=== PATIENT | male | born 1960 | race African-American/Black ===

== ENCOUNTER 2017-12-02 07:55 | Inpatient (IN) | payer MEDICARE, MEDICAID ==
[2017-12-02 08:26] VITALS: BMI 26.2
[2017-12-02] MEDS ORDERED: Acetaminophen 325 MG TAB PO PRN (10:24)
[2017-12-02] MEDS ORDERED: Ondansetron HCl/PF 4 MG/2 ML Vial IVP PRN (10:24)
[2017-12-02] MEDS ORDERED: Ondansetron ODT 4 MG TAB PO PRN (10:24)
[2017-12-02 10:52] LABS: Hemoglobin 14.6 g/dL (14.0-18.0); Mean Corpuscular HGB CONC 33.3 g/dL (32.0-36.0); Mean Corpuscular Hemoglobin 33.7 pg (27.0-31.0); Mean Platelet Volume 8.2 fL (7.4-10.4); Platelet Count 213 thou/uL (130-400); RBC Distribution Width 11.5 % (11.5-14.5); Red Blood Cell (RBC) Count 4.34 mill/uL (4.70-6.10); White Blood Cell (WBC) Count 5.4 thou/uL (4.8-10.8)
[2017-12-02 11:14] LABS: ALT (SGPT) 52 U/L (8-55); AST (SGOT) 35 U/L (5-34); Albumin 3.9 g/dL (3.5-5.0); Alkaline Phosphatase 50 U/L (40-150); Anion Gap 15 mmol/L (10-20); BUN (Urea Nitrogen) 16 mg/dL (8.4-25.7); Bilirubin, Total 0.6 mg/dL (0.2-1.2); Calc. Creatinine Clearance 93 mL/min (70-130); Calcium 9.4 mg/dL (7.8-10.44); Carbon Dioxide 22 mmol/L (22-29); Chloride 101 mmol/L (98-107); Estimated GFR-MDRD 90; Globulin 4.4 g/dL (2.4-3.5); Glucose 86 mg/dL (70-105); Potassium 3.9 mmol/L (3.5-5.1); Protein, Total 8.3 g/dL (6.0-8.3); Sodium 134 mmol/L (136-145)
[2017-12-02 11:30] LABS: Band 3 % (5-11); Eosinophils 10 % (0-10); Lymphocytes 22 % (21-51); MDiff Complete? YES; Monocytes 12 % (0-10); Neutrophil 45 % (42-75); RBC Morphology Normal; Reactive Lymphocytes 7 % (0-10)
--- NOTE | 2017-12-02 15:51 | HP ---
DATE OF SERVICE: 12/02/2017 LOCATION: [place] [address]. HISTORY OF PRESENT ILLNESS: The patient is a 56-year-old male with past medical history of hypertens ion, psychiatric problems and history of seizures who follows up with me in the clinic and he was a t ransfer of care from Dr. Velásquez. Most of the history is provided by his mother. The patient has s een Dr. Chisholm and Dr. Chavez in the past for seizures. SEIZURE HISTORY: He has had seizures since . When asked in detail about what kind of seizures he had as a kid, mother says regular seizures. She was not able to provide any more details. Then bel brand used to live by himself for a long time, so she does not know what happened during that period. He has been staying with his mother for the last 7-8 years. She said that before with the seizures, he would fall flat. He has a history of grand mal seizures several years ago. His seizures now are di fferent than his previous seizures. She describes it as he starts feeling different, he starts fidge ting with his hands, then he gets up and starts walking, sometimes he falls. There is no loss of con sciousness, very seldom, his hands and legs become straight and starts shaking. Currently, he is on 3 antiepileptic medications. Vimpat 200 mg 1 twice a day, Keppra 750 mg 2.5 tabl ets twice a day and Trileptal 600 mg 1 tablet twice a day. His last clinic visit on 10/09/2017, [facility] had mentioned that he had several seizures similar to what was described above. He continued to h ave frequent seizure-like episodes. He had 6 seizures between June and September last year. The on e he had in July, he wet his pants and the one in September, he had taken Janina and had a seizu re that he was confused for 2-3 days. Mother had recorded a seizure on the phone, which I had review ed. The patient was in the bed with eyes open, hands straight up in air. He was fumbling with the p illows in his hand. He had bicycling movements of his legs. He was not responding to the mother, th en he sat up and started arranging things. He would get up and start walking and sit down and then g et up again and start walking. He did that several times. He did not answer or respond to his mothe r, but he was purposeful during that time. He is compliant with the seizure medications. He is on K eppra, Trileptal, and the Vimpat levels in the past in 05/2017 were therapeutic. According to the previous neurologist note, the triggers were hypertension, heat and stress. 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 His previous EEG did not show any epileptiform activity. The patient is currentl y admitted to the epilepsy monitoring unit to further characterize his current episodes, which are di fferent from his previous seizures and to differentiate between epileptic versus nonepileptic episode s, which would further guidance with the treatment plan. The patient is currently stable. He denies any symptoms. PAST MEDICAL HISTORY: As mentioned in the HPI. PAST SURGICAL HISTORY: None. FAMILY HISTORY: Father due to possible reaction to penicillin. Mother has diabetes, hypert ension and heart disease. SOCIAL HISTORY: Former smoker. No alcohol use, no illicit drug use. ALLERGIES: No known drug allergies. HOME MEDICATIONS: Antiepileptic medications as described in the HPI. The patient also takes 81 mg a spirin, hydrochlorothiazide 25 mg daily and risperidone 0.5 mg at bedtime. REVIEW OF SYSTEMS: As mentioned in the HPI, otherwise negative. PHYSICAL EXAMINATION: VITAL SIGNS: Temperature 97.5, pulse rate 66, respiratory rate 17, O2 sats 96% on room air and blood pressure 138-141/80-96. GENERAL: A well-developed, well-nourished male in no apparent distress. HEENT: Normocephalic and atraumatic. Normal sclerae. NECK: Supple. RESPIRATORY: Clear to auscultation bilaterally. CARDIOVASCULAR: Regular rate and rhythm. NEUROLOGIC: The patient is awake, alert, oriented x3, and able to answer questions appropriately. S peech and language fluent. Cranial nerves: Pupils are reactive to light bilaterally. Visual rodriguez are intact. Extraocular movements intact. Face is symmetric, normal hearing, normal shoulder shrug bilaterally. Motor: Normal tone and bulk with 5/5 strength in bilateral upper and lower extremitie s. Sensory intact to fine touch throughout. Reflexes are 2+ throughout. Plantar response is flexio n bilaterally. Gait and Romberg not tested. Coordination is intact to [id number] testing. IMPRESSION: 1. Spells as described in the history of present illness. 2. History of seizures, grand mal seizures per mother and passing out spells per previous neurologis t. 3. History of hypertension. 4. History of psychiatric problems. PLAN: 1. The patient is admitted to the epilepsy monitoring unit for long-term video EEG monitoring to sonya racterize and classify the new spells that he has been having, which are different than his previous seizure episodes to see whether they are epileptic or nonepileptic in nature, which will further guid e us with appropriate treatment strategy, so this test will help us classify the spells into epilepti c versus nonepileptic spells, which will further guidance us in the treatment plan. The patient cont inues to have these episodes even after being on 3 different antiepileptic medications. 2. We will hold his antiepileptic medications tonight. 3. Continue his other medications including hydrochlorothiazide, aspirin, and risperidone. 4. The patient is on p.r.n. Ativan for prolonged seizure or cluster of seizures. He is also on p.r. n. Tylenol, Zofran. 5. We will check CBC, CMP and Keppra, Trileptal and Vimpat level. 6. Seizure precautions and fall precautions implemented. 7. Cardiac diet. 8. Sequential compression devices for deep venous thrombosis prophylaxis. 9. Neuro checks and vital signs every 4 hours. 10. The patient will be continuously monitored through video and EEG recording to capture his seizur e-like episodes. 11. The patient will not be sleep deprived tonight. We will try to capture his normal sleep and lalo ke pattern on the EEG. 12. The entire plan was discussed with the patient and the mother. We will continue to monitor the patient and the plan was also discussed with the nurse taking care of the patient.
[2017-12-02] MEDS: risperiDONE 1 MG TAB PO SCH (20:53)
[2017-12-03] MEDS: Aspirin 81 mg Enteric Coated Tablet PO SCH (08:35)
[2017-12-03] MEDS: Hydrochlorothiazide 25 MG TAB PO SCH (08:35)
[2017-12-03] MEDS: Lorazepam 2 MG/ML VIAL SLOW IVP PRN (15:30)
[2017-12-03] MEDS ORDERED: hydrALAZINE 20 MG/ML VIAL SLOW IVP PRN (15:53)
[2017-12-03] MEDS: Lacosamide 50 mg Tablet PO SCH (16:59)
[2017-12-03] MEDS ORDERED: Lacosamide 200 MG in Sodium Chloride 0.9% 50 ML IVPB SCH (17:00)
[2017-12-03] MEDS ORDERED: Lorazepam 2 MG/ML VIAL SLOW IVP SCH (17:15)
[2017-12-03] MEDS ORDERED: levETIRAcetam 500 MG TAB PO SCH (21:30)
[2017-12-03] MEDS: risperiDONE 1 MG TAB PO SCH (22:13)
--- NOTE | 2017-12-03 22:23 | PRG ---
DATE OF SERVICE: 12/03/2017 LOCATION: [place] [address]. SUBJECTIVE HISTORY: Up until this evening, patient has had 4 seizure episodes. The first seizure episode was yesterday. On 12/02/2017 at night, the patient pushed the event button and then he was stiff/still for few seconds. He was fumbling with his hand. He was fidgety, restless, he stood up and started walking around. He had urinary incontinence. He was confused. He was not agitated. There was no tonic clonic movement with this episode. It lasted for 14 minutes. Patient had 3 more episodes today on 12/03/2017. They were mostly tonic clonic in nature. Patient received 2 mg Ativan after the second seizure. The other two were not as intense and not long lasting like the second seizure. He was little bit agitated, so he was given additional 1 mg Ativan. Patient otherwise remains stable in between the episodes. His blood pressure remains slightly on the higher side. He did have tachycardia and elevated blood pressure with the seizure episodes. OBJECTIVE HISTORY: VITAL SIGNS: Temperature 98.2, pulse rate 92, respiratory rate 16, O2 sats 94% on room air, blood pressure 146-155/100-110. GENERAL: Well-developed, well-nourished male in no apparent distress. RESPIRATORY: Clear to auscultation bilaterally. CARDIOVASCULAR: Regular rate and rhythm. NEUROLOGIC: Patient when I examined him, was initially postictal from a seizure and was slightly confused and not able to answer orientation questions, but later on when I examined again, he was able to tell me his name, his date of . He was able to say that he is in the hospital. He was able to follow commands. There was no focal weakness noted on one side. He was able to move all his extremities symmetrically. LABORATORY DATA: Of note, CBC with normal white cell count, normal hemoglobin and platelet count. Chemistry with sodium 134. Normal GFR. LFTs with very mildly elevated AST 35. Keppra level 42.1. IMAGING: None. IMPRESSION: 1. Complex partial seizures. 2. Tonic clonic seizure, complex partial seizure with secondary generalization. 3. History of hypertension. 4. History of psychiatric problems. PLAN: 1. Patient is currently admitted to the epilepsy monitoring unit for long-term video EEG monitoring. Patient has had 4 seizure episodes up until this evening. Patient received 2 mg Ativan with the second seizure and then received an additional 1 mg Ativan later on because he was agitated and restless. 2. We will start the patient back on home dose of Vimpat with the first dose this evening IV and then will continue patient on oral home dose of Vimpat. 3. We will continue to monitor the patient. If the patient has more frequent seizures then we will put him back on his home seizure medications. 4. Patient's other medications have been continued, which includes hydrochlorothiazide, aspirin, and risperidone. 5. Patient will be continued on p.r.n. Ativan for prolonged seizure or cluster of seizures. 6. We will start the patient on p.r.n. hydralazine for elevated blood pressure. 7. Seizure precautions and fall precautions implemented. 8. Cardiac diet. 9. Sequential compression device for deep vein thrombosis prophylaxis. 10. Neuro checks and vital signs every 4 hours. 11. No sleep deprivation. 12. We will continue to monitor the patient through continuous video and EEG recording to capture more of his seizure episodes. The entire plan was discussed with the patient and with the patient's mother and the nurse taking care of the patient. I spent more than 30 to 35 minutes discussing the EEG findings and treatment plan for today. FELICIA
[2017-12-04] MEDS ORDERED: levETIRAcetam 500 MG TAB PO SCH ×2 (09:00→21:00)
[2017-12-04] MEDS: Hydrochlorothiazide 25 MG TAB PO SCH (09:25)
[2017-12-04] MEDS: Aspirin 81 mg Enteric Coated Tablet PO SCH (09:25)
[2017-12-04] MEDS: Lacosamide 50 mg Tablet PO SCH ×2 (10:06→20:46)
[2017-12-04] MEDS: Lorazepam 2 MG/ML VIAL SLOW IVP PRN (11:22)
[2017-12-04] MEDS: risperiDONE 1 MG TAB PO SCH (20:45)
--- NOTE | 2017-12-04 20:54 | PRG ---
DATE OF SERVICE: 12/04/2017 LOCATION: [place] [address]. SUBJECTIVE HISTORY: Since admission, the patient has had a total of 8 seizure episodes, all the seizure episodes were similar clinically and electrographically. They usually start when he is in the bed, with most of them , he says out his name loud. He tries to move around in the bed and tries to get up from the bed. He has puckering of his mouth. This is followed by him being still, unresponsive, and brief stiffness of his extremities. There is very brief clonic activity of his extremities. This is followed by cessation of the clonic activity and then patient becomes very restless, agitated, and starts fidgeting, tries to get up from the bed. With one of the seizures he stood up in the bed, with the other seizure he stood up and walked in the room, he had lip smacking movements. He is confused and does not respond to questions with some of them. He has urinary incontinence. There are vital sign changes with the seizure episodes. The tonic-clonic activity is very brief , maximum around 2 minutes. The postictal confusion and agitation last anywhere between 20-30 minutes. The patient remains stable in between the seizure episode. When I spoke to him this evening, he did not have any symptoms. He denied any headache, nausea, vomiting. He appeared to be stable from neurological standpoint. His blood pressure and heart rate increased with the seizure episodes. The patient is currently on Vimpat home dose of 200 mg twice a day and Keppra 750 mg twice a day. OBJECTIVE HISTORY: VITAL SIGNS: Temperature 98.9, pulse rate 110, respiratory rate 16-24, O2 sats 92% to 94% on room air, blood pressure 130s to 160s over 100 to 110. GENERAL: Well-developed, well-nourished male, in no apparent distress. RESPIRATORY: Clear to auscultation bilaterally. CARDIOVASCULAR: Regular rate and rhythm. NEUROLOGIC: The patient was awake, alert, oriented x3. He was able to tell me his name, his date of . He was able to say that he is in the hospital in [place]. He was able to tell me the current year and month. He was able to follow commands appropriately. Extraocular movements appear to be intact. No facial droop noted. The patient had 5/5 strength in bilateral upper and lower extremities. No focal weakness noted. Finger tapping intact in upper extremities. LABORATORY DATA: No new labs to review. IMAGING: None. IMPRESSION: 1. Likely complex partial seizure with secondary generalization. 2. History of hypertension. 3. History of psychiatric problems. PLAN: 1. The patient is currently admitted to the epilepsy monitoring unit for long- term video EEG monitoring. As mentioned before, the patient has had a total of 8-seizure episodes so far. It appears that the seizure focus is in the right frontocentral region, which quickly spreads to the left frontal and bitemporal regions. The patient received Ativan earlier this morning because of agitation and restlessness. 2. We will continue patient on Vimpat 200 mg twice a day and Keppra 750 mg twice a day. 3. We will resume his home dose seizure medication starting tomorrow. The patient will be on Vimpat 200 mg twice a day. His Keppra will be increased to home dose of 1875 mg twice a day and he will be started on Trileptal 600 mg twice a day. 4. The patient's other medications have been continued including hydrochlorothiazide, aspirin, and risperidone. 5. The patient is on p.r.n. Ativan for prolonged seizure or cluster of seizures. 6. The patient is on p.r.n. hydralazine for elevated blood pressures. 7. Seizure precautions and fall precautions are recommended. 8. Cardiac diet. 9. SCDs for DVT prophylaxis. 10. Neuro checks and vital signs every 4 hours. 11. No sleep deprivation. 12. We will continue to monitor the patient to record more seizures. The entire plan was discussed with the patient, the patient's mother and the nurse taking care of the patient. I spent more than 30 minutes discussing the video EEG findings and the treatment plan for today and tomorrow with the patient, the mother, and the nurse. FELICIA
[2017-12-05] MEDS: Aspirin 81 mg Enteric Coated Tablet PO SCH (08:58)
[2017-12-05] MEDS: OXcarbazepine 300 MG TAB PO SCH ×2 (08:58→21:03)
[2017-12-05] MEDS: Hydrochlorothiazide 25 MG TAB PO SCH (08:58)
[2017-12-05] MEDS: levETIRAcetam 500 mg/5 ml Oral Solution PO SCH ×2 (08:59→20:59)
[2017-12-05] MEDS ORDERED: levETIRAcetam 500 MG TAB PO SCH (09:00)
[2017-12-05] MEDS: Lacosamide 50 mg Tablet PO SCH ×2 (09:59→21:03)
[2017-12-05] MEDS: risperiDONE 1 MG TAB PO SCH (21:04)
[2017-12-06 07:22] VITALS: TEMP 98.8
[2017-12-06] MEDS: Aspirin 81 mg Enteric Coated Tablet PO SCH (08:04)
[2017-12-06] MEDS: Hydrochlorothiazide 25 MG TAB PO SCH (08:04)
[2017-12-06] MEDS: Lacosamide 50 mg Tablet PO SCH (08:04)
[2017-12-06] MEDS: OXcarbazepine 300 MG TAB PO SCH (08:04)
[2017-12-06] MEDS: levETIRAcetam 500 mg/5 ml Oral Solution PO SCH (08:05)
--- NOTE | 2017-12-06 08:25 | PRG ---
DATE OF SERVICE: 12/05/2017 LOCATION: [facility] SUBJECTIVE HISTORY: The patient did not have any acute events or seizure episodes overnight. He had 1 more seizure episodes after 10:00 a.m. on 12/05/2016, so in total he has had 9 seizure episodes si iae admission and they have been clinically and electrographically similar in nature. The patient de nies any acute symptoms. He denies any headache, nausea or vomiting. He appears to be stable from n eurological standpoint. He is currently on all of his antiepileptic medications from dose which was started on the morning of 12/05/2016. OBJECTIVE HISTORY: VITAL SIGNS: Temperature 98, pulse rate 88 to 104, respiratory rate 16-20, O2 sats 100%, blood press ure 120s to 130s/90s to 100. GENERAL: Well-developed, well-nourished male in no apparent distress. RESPIRATORY: Clear to auscultation bilaterally. CARDIOVASCULAR: Regular rate and rhythm. NEUROLOGIC: The patient is awake, alert, oriented x3. He was able to tell me his name, date of , that he was in the hospital in [place]. He was able to name the hospital. He was able to tell me t he current year and the month. He was able to follow commands appropriately. Extraocular movements appear to be intact. No facial droop noted. The patient had 5/5 strength in bilateral upper and low er extremities. No focal weakness noted. Finger tapping intact in upper extremities. LABORATORY DATA: Trileptal level was 25, Vimpat level 10.1, Keppra level of 42.1. IMAGING: None. ASSESSMENT: 1. Likely complex partial seizures with secondary generalization. 2. History of hypertension. 3. History of psychiatric problems. PLAN: 1. Patient is currently admitted to the epilepsy monitoring unit for long-term video EEG monitoring. As mentioned before, the patient has had a total of nine seizure episode so far. They have been cli nically and electrographically similar in nature. It appears that the seizure focus is in the right frontocentral region which could be spread to the left frontal and bitemporal regions. 2. The patient has been resumed on his home antiepileptic medication, he is on his three antiepilept ic medications including Vimpat 200 mg twice a day, Keppra 1875 mg twice daily and Trileptal 600 mg t wice a day. 3. He is also on his other home medications including hydrochlorothiazide, aspirin and Risperidone. 4. The patient is on p.r.n. Ativan for prolonged seizure or cluster of seizures. 5. The patient is on p.r.n. hydralazine for elevated blood pressures. 6. Seizure precautions and fall precautions implemented. 7. Cardiac diet. 8. SCDs for DVT prophylaxis. 9. Neuro checks and vital signs every 4 hours. 10. No sleep deprivation. 11. We will continue to monitor the patient to record more seizures. The entire plan was discussed with the patient, the patient's mother and the nurse taking care of the patient. We also discussed about the options whether to continue him on his home antiepileptic medi cations or add another medication to his current list to get better control of his seizures. It appe ared that the patient and the patient's mother were willing to try a fourth medication to see if it m akes a difference. We will discuss about it again tomorrow. I spent more than 35 minutes discussing the video EEG findings and the treatment plan with the slava t, the mother and the nurse.
[2017-12-06 12:08] VITALS: BP 111/85
--- NOTE | 2017-12-06 21:30 | DIS ---
DATE OF ADMISSION: 12/02/2017. DATE OF DISCHARGE: 12/06/2017. DISCHARGE DIAGNOSES: 1. Complex partial seizures with secondary generalization. 2. History of hypertension. 3. History of psychiatric problems. HISTORY OF PRESENT ILLNESS: Please see the dictated history and physical note for full details. BRIEF HOSPITAL SUMMARY: The patient was admitted from 12/02/2017 to 12/06/2017. The patient was adm itted to the epilepsy monitoring unit for long-term video EEG monitoring. The patient remained on co ntinuous video and EEG monitoring. He remained on continuous cardiac monitoring. The patient's anti epileptic medications were held on the day of admission to capture his seizure episodes. His other h ome medications including hydrochlorothiazide, aspirin, and risperidone were continued during the ent evelia hospital stay. He was placed on p.r.n. Ativan for prolonged seizures or cluster of seizures. He required few Ativan doses because of agitation and restlessness. He was placed on seizure and fall precautions. He was placed on cardiac diet. He was placed on SCDs for DVT prophylaxis. Neuro check s and vital signs were performed every 4 hours. The patient was not sleep deprived during his hospit al stay. On day 2, since the patient had several of his seizure episodes, the patient was started ba ck on Vimpat home dose and then since he continued to have few more seizure episodes, he was started on Keppra 750 mg twice a day and he was continued on those 2 medications up until when all h is home seizure medications were resumed and started. The patient had a total of 10 seizure episodes during his hospital stay. All his seizures were clinically and electrographically similar in nature , but it appeared that the seizures were shorter in duration and less intense with medications compar ed to when he was off medications. His seizure events would start with him being in the bed and then he would start calling out his name and then he will sit up in the bed looking around, trying to get out of the bed. He would have mouth puckering. Initially, with his seizure episode, he would becom e still and unresponsive for few seconds followed by brief tonic-clonic movement of his body. This w as not noted with the seizures he had later on when he was on his medications. This would be followe d by the patient being very restless, agitated, fidgety, would have continuous lip smacking and facia l automatisms. He would be confused. With some of the episode, he stood up and was walking in the r oom; and with one of them, he stood up on the bed and needed 3 nurses to control him. He did have vi digna sign changes with this episode and had urinary incontinence with some of them. The postictal per iod would last anywhere from 20-30 minutes. EEG during these events started with normal background a ctivity, followed by increased myogenic activity, and followed by rhythmic 3-4 Hz activity noted pred ominantly at FP2, F4, C4, P4 which would rapidly evolve and spread to the left frontal and bitemporal regions followed by rhythmic myogenic activity coinciding with either his clonic movements or facial automatisms and chewing movements. This would be followed by diffuse slowing and suppression and th en return back to his baseline. The entire video EEG findings were discussed with the patient and th e patient's mother. The patient's blood pressure remained on the higher side during and after the se izure event, and he was placed on p.r.n. hydralazine to control his blood pressures. The patient remained neurologically stable throughout his hospital stay. On the day of discharge, he did not have any acute neurological symptoms. He denied of any headache, nausea, vomiting. He leydi ined stable. Since he had reached maximum hospital benefit, it was decided that he can be safely dis charged home with his mother. DISCHARGE DISPOSITION: Discharge to home. DISCHARGE CONDITION: Stable. DISCHARGE DIAGNOSES: As above. DISCHARGE MEDICATIONS: The patient was advised to resume his home medications that include his seizu re medications, Vimpat 200 mg twice a day, Keppra 1875 mg twice a day, and Trileptal 600 mg twice a d ay. The patient was started on clonazepam 0.5 mg 1 tablet at bedtime and a prescription was called i nto the pharmacy. FOLLOWUP: The patient will follow up with me in the clinic in two months, in January, for seizures. T he patient was advised to follow up with his primary care doctor for management of his hypertension a nd other medical problems. DISCHARGE DIET: Cardiac, heart healthy, low-sodium diet. ACTIVITY: Upon discharge, no driving and seizure precautions explained.
--- NOTE | 2017-12-09 16:37 | EEG ---
Referring Physician: DR. ALFREDO WOMACK EEG # EMU 18-01 PATIENT'S NAME: BRIAN KATZ REPORT TYPE: VIDEO ELECTROENCEPHALOGRAM REPORT STUDY DATE: , 12/02/2017, 9:30 AM - 12/03/2017, 9:30 AM STUDY REVIEWED AND INTERPRETED BY DR. ALFREDO WOMACK TECHNICAL DESCRIPTION: Study is of excellent quality for interpretation. This is a 22 channel digital EEG recording performed utilizing ten-twenty international electrode placement system. STUDY REPORT: AWAKE STATE: The background activity during wakefulness consists predominately of low to moderate amplitude 7-8 Hz rhythm which is symmetric and reactive. This activity is penetrated with low amplitude beta activity and with myogenic activity representing frontalis and temporalis muscles bilaterally. DROWSINESS: The subject is able to attain periods of drowsiness with diffuse slow theta activity. No asymmetry noted between two hemispheres. No paroxysmal activity noted. SLEEP: Subject is able to attain non-REM sleep with normal sleep potentials. Again, no asymmetry noted between the two hemispheres. No paroxysmal activity noted. INDUCTION: HYPERVENTILATION: Results in no significant change in the background activity. PHOTIC STIMULATION: No photic drive seen. INTERICTAL EEG DESCRIPTION: In between the patient's events, no clear epileptiform activity noted. No electrographic seizures noted in between the events. After the patient's event , there was some irregularity noted in the left temporal region, predominately T5 electrode which was continuous without any evolvement which could suggest electrode artifact. ICTAL EVENTS: The patient on day 1 of video EEG recording, had one push button event which was on 12/02/2017 at 22:28:52. CLINICAL DESCRIPTION: The patient was laying in the bed on his right side. He pushed the event button, he was trying to get up and he was looking down on his right. This was followed by brief generalized stiffness, he became still, his eyes were open. It appeared that they were looking to the right, he started lip smacking. As the seizure progressed, he was fumbling with his left hand and his right hand was extended straight and stiff. This lasted for a few seconds and then patient rubbed his nose with his left hand. 2 minutes into the seizure activity he sat up in the bed, he still continued to have nonpurposeful movement, he was agitated, fidgety and restless. A minute later he tried to get up, took his shirt off and then for a brief time he was not in front of the camera. At 22:32:44 he was back on the camera, he was walking in the room, moving, he was taking his clothes off. It appeared that he had urinary incontinence. There were 3-4 nurses supporting him, making sure he did not have a fall. He sat down briefly and then stood up again, started cleaning and wiping himself. Eventually he was able to use the urinal. He was able to help the nurses get dressed, he wiped his hands with the engineer operations and maintenance which appeared to be some purposeful movement. He still appeared to be intermittently confused at 22:38 and eventually he rested in the bed at 22:42, when asked he said he did not remember anything. It appeared that the seizure lasted for roughly 14 minutes. EEG DESCRIPTION: EEG started with normal background activity followed by increased myogenic activity. This was followed by rhythmic, high amplitude 3-4 hertz activity which was seen at FP2, F4, C4, P4, more prominent at C4,P4 than F4. It appeared that it quickly spread to the left frontocentral region. This was followed by spike and slow wave activity in the right anterior temporal region at T4. It was hard to say that is spread to the left temporal region, but it may have spread to the left temporal region as well. This was followed by increased rhythmic myogenic activity and movement artifact which lasted for several minutes until the patient was back on the bed. It appeared that there was no significant suppression of the background activity following the seizure and it quickly returned to normal background rhythm. EK per minute, regular. IMPRESSION: ON DAY 1 OF VIDEO EEG RECORDING, THE PATIENT HAD 7-8 HERTZ BACKGROUND RHYTHM WITH NORMAL DROWSY, AWAKE AND ASLEEP STAGES. THERE WAS NO CLEAR INTERICTAL EPILEPTIFORM ACTIVITY OR ELECTROGRAPHIC SEIZURES NOTED. THE PATIENT HAD ONE ICTAL EVENT WHICH PATIENT WA ABLE TO PUSH THE EVENT BUTTON BY HIMSELF. HE DID NOT REMEMBER THE EVENT. IT APPEARS THAT IT WAS SIMILAR TO HIS ROUTINE EPISODES THAT HE IS HAVING WHERE HE WAS CONFUSED, FUMBLING WITH HIS HANDS, HAD LIP SMACKING, WAS FIDGETY, STOOD UP AND WAS WALKING AROUND, HAD INCONTINENCE WITH IT. THERE WAS INITIALLY SOME STIFFNESS NOTED. NO CLONIC ACTIVITY NOTED. THE PATIENT DID HAVE ELECTROGRAPHIC CHANGES WITH IT. ON EEG IT APPEARED THAT IT STARTED IN THE RIGHT [id number] REGION AND QUICKLY SPREAD TO THE LEFT FRONTAL-CENTRAL REGION AND THEN TO THE TEMPORAL REGION. THE EEG FINDINGS WERE DISCUSSED WITH THE PATIENT AND PATIENT'S MOTHER. WILL CONTINUE TO MONITOR THE PATIENT AND RECORD MORE EVENTS. Warehouse Logistics Coordinator:MURALI Chuck Splitter: [email or web address] DURATE
--- NOTE | 2017-12-10 10:47 | EEG ---
Referring Physician: DR. ALFREDO WOMACK EEG # EMU 18-01 PATIENT NAME: Javier Macdonald : 1960 REPORT TYPE: VIDEO ELECTROENCEPHALOGAM REPORT STUDY DATE: 12/03/17, 9:30 AM 12/04/17, 9:30 AM STUDY REVIEWED AND INTERPRETED BY DR. ALFREDO WOMACK TECHNICAL DESCRIPTION: This study is of excellent quality for interpretation. STUDY REPORT: This is a 22-channel digital EEG recording utilizing 10-20 international electrode placement system. BACKGROUND ACTIVITY: The background activity predominantly consists of low to moderate amplitude 7-8 Hz rhythm, it is symmetric and reactive. This activity is penetrated by low amplitude fast beta activity and with myogenic activity representing frontalis and temporalis muscles bilaterally. DROWSINESS AND SLEEP: Subject is able to attain periods of drowsiness with diffuse theta activity. There is no paroxysmal activity noted. No focal asymmetry noted. SLEEP: Subject is able to attain non-REM sleep with normal sleep potentials. Again, there is no paroxysmal activity noted. No focal abnormality noted. INDUCTION: PHOTIC STIMULATION: No photic drive seen. HYPERVENTILATION: Not performed. INTERICTAL EEG ON DAY 2 VIDEO EEG RECORDING: There was no clear interictal epileptiform activity noted. No electrographic seizure activity noted in between the ictal events. ICTAL EVENTS ON DAY 2: The patient had total of 6 ictal events, noted at 15:05 :48 on 12/03/17, second one noted at 16:22:07 on 12/03/17, the third one noted at 17:17:56 on 12/03/17, the fourth one noted at 20:13 on 12/03/17, the fifth one noted at 21:20:18 on 12/03/17 and the sixth one noted at 06:16:06 on . A total of 6 ictal events noted. All the ictal events are clinically and electrographically identical in nature. Clinical description applies to all the ictal events. With most events patient was in bed. Suddenly he started calling his name and then moving around in the bed and tries to get up and out of the bed, has mouth puckering. This is followed by patient becoming briefly stiff all over and then becoming still and unresponsive. There is brief clonic rhythmic activity noted, sometimes was noted on the left upper and left lower extremities, sometimes it was more generalized in nature, lasted for a brief time, maximum 2 minutes, this is followed by the patient getting very restless , fidgety, agitated at times pulling on the wires and trying to get up. He appears to be confused and not responding to the nurses and not answering their questions. With one of the episodes, he stood up in the bed. He has lip smacking during this postictal phase with 1 or 2 episodes he is wiping his nose and mouth with the left hand and there is back and forth rocking movement of his body. With some of the episodes there is grunting noted with the clonic activity. He has urinary incontinence with some of the episodes. There are vital signs changes noted with these ictal events. The postictal phase of agitation, confusion lasts around 25-30 minutes on average and then patient slowly returns to his baseline and starts answering orientation questions and starts following commands. Electrographically the EEG starts with normal background activity followed by increased myogenic activity which is more diffuse and generalized and lasts for a few seconds. This is followed by rhythmic 3-4 Hz moderate to high amplitude activity noted at FP2, F4, C4, P4 which appears to very quickly spread to the left frontal and bitemporal regions. It evolves in nature with increased faster frequencies. This is eventually mixed with myogenic activity and mixed frequencies and this rhythmic activity becomes more generalized in nature, continues for some time and is followed by diffuse suppression and slow delta activity followed by myogenic and electrode artifact. The normal background activity slowly starts picking up and it returns to the normal preictal background rhythm around the same time when patient recovers from the postictal state. EK per minute. IMPRESSION: ON DAY 2 VIDEO EEG RECORDING, THE PATIENT CONTINUES TO HAVE 7-8 HERTZ BACKGROUND RHYTHM IN BETWEEN THE ICTAL EVENTS WITH NORMAL DROWSY AND SLEEP STAGES AND WITH NO INTERICTAL EPILEPTIFORM ACTIVITY. MENTIONED ABOVE, THE PATIENT HAD A TOTAL OF 6 ICTAL EVENTS ON DAY 2. CLINICAL DESCRIPTION MENTIONED ABOVE. EEG SHOWS RIGHT FRONTAL CENTRAL FOCUS WHICH QUICKLY SPREADS TO THE LEFT FRONTAL AND BITEMPORAL REGIONS FOLLOWED BY DIFFUSE GENERALIZED SUPPRESSION. WILL CONTINUE TO MONITOR THE PATIENT THROUGH VIDEO EEG RECORDING. Analyst Sales: MURALI Director Of Architecture: EEG.YI DUARTE
--- NOTE | 2017-12-10 14:47 | EEG ---
Referring Physician: DR. ALFREDO WOMACK EEG # EMU 18-01 PATIENT NAME: Javier Macdonald : 1960 STUDY TYPE: Video electroencephalogram STUDY DATE: , 12/04/2017, 9:30 a.m. - 12/05/2017, 9:30 a.m. STUDY REPORT: BACKGROUND ACTIVITY: The background activity consists predominantly of low to moderate amplitude 7-8 Hz rhythm. It is symmetric and reactive. It is mixed with low amplitude beta activity and with myogenic activity representing frontalis and temporalis muscles bilaterally. There is electrode artifact noted at T5. Patient is unable to keep the eyelid electrodes and EKG leads on during the middle of the study. DROWSINESS: Subject is able to attain periods of drowsiness with diffuse theta activity. SLEEP: Subject is able to attain non-REM sleep with normal sleep potentials. There is no asymmetry noted between 2 hemispheres. No paroxysmal activity noted during drowsy or sleep stages. INDUCTION: PHOTIC STIMULATION: No photic drive seen. HYPERVENTILATION: With fair effort results in no significant change in the background activity. INTERICTAL EEG: On day 3 video EEG recording there is no clear epileptiform activity noted in between the ictal events, no electrographic seizures noted in between the ictal events. ICTAL EVENTS: The patient had 1 ictal event on day #3, which was on 12/04/2017 at 11:15:45. It appears to be clinically and electrographically similar to his previous ictal events. Patient was sleeping in the bed. He wakes up calling his name. He moves around and tried to get up from the bed. He has mouth puckering then he leans back, becomes still and unresponsive. With this event there was no significant tonic clonic activity noted, and then he wakes up. He has lip smacking and facial automatism. He is very agitated, restless, fidgety tries to get up. He was given Ativan for agitation. He was still not able to answer orientation questions at 11:26:20, but later on he was able to show purposeful movement. He was able to open up and eat food by himself and he appeared to be eating okay and back to baseline around 11:29 EEG FINDINGS: Appear to be similar to his previous ictal events. It starts with normal background activity and there is a burst EMG activity for a few seconds. This is followed by rhythmic 3-4 Hz activity noted at FP2, F4, C4, P4 which then quickly spread to the left frontal and bitemporal regions and continues to evolve and mixed with myogenic activity. This is followed by diffuse suppression and then slowly returns to baseline IMPRESSION: SINCE ADMISSION, IT APPEARS PATIENT HAS HAD A TOTAL OF 8 ICTAL EVENTS WHICH APPEAR TO BE SEEN CLINICALLY AND ELECTROGRAPHICALLY DESCRIBED ABOVE. IT APPEARS THAT THE PATIENT HAS RIGHT FRONTOCENTRAL, QUESTIONABLE PARIETAL FOCUS WITH RAPID SECONDARY GENERALIZATION. THERE IS NO INTERICTAL EPILEPTIFORM ACTIVITY OR ELECTROGRAPHIC SEIZURE ACTIVITY NOTED. THE PATIENT'S BACKGROUND ACTIVITY APPEARS TO BE 7-8 HERTZ RHYTHM. WILL CONTINUE TO MONITOR THE PATIENT. Agricultural Research Engineer:MURALI Founding Partner: EEG.YI DUARTE
--- NOTE | 2017-12-10 15:56 | EEG ---
Referring Physician: DE. ALFREDO WOMACK EEG # EMU 18-01 PROCEDURE: Video EEG report NAME OF PATIENT: Javier Macdonald MEDICAL RECORD# #[id number] DATE OF : 1960 STUDY TYPE: Video electroencephalogram report. STUDY DATE: , 12/05/2017, 9:30 a.m. to 12/06/2017, 11:48 a.m. STUDY REVIEWED AND INTERPRETED BY DR. ALFREDO WOMACK TECHNICAL DESCRIPTION: Study is of excellent quality for interpretation. STUDY REPORT: BACKGROUND ACTIVITY: The background activity consists predominantly of low to moderate amplitude 7-8 Hz rhythm which is symmetric and reactive. This activity is penetrated by low amplitude beta activity and with myogenic activity representing frontalis and temporalis muscles bilaterally. DROWSINESS: Subject is able to attain periods of drowsiness with diffuse theta activity. SLEEP: Subject is able to attain non-REM sleep with normal sleep potentials. INDUCTION: PHOTIC STIMULATION: No photic drive seen. HYPERVENTILATION: With good effort results in no significant change in the background activity. INTERICTAL EEG DESCRIPTION: On day 4 video EEG recording it appeared that patient has questionable spike and slow wave discharges noted in the left hemisphere at F7, F3, C3 during drowsy and sleep stages. No electrographic seizures noted outside of the ictal events. ICTAL EVENTS: The patient had 2 ictal events on day 4 recording. The first event was on 12/05 at 10:10:45 and clinically it appeared similar to his previous seizures. The second event was on 12/05/2017 at 19:55:01. With both seizures patient was in the bed. His eyes open, it starts with him calling out his name, he sits up in the bed, looks around, his mouth puckering. He is trying to get out of the bed, looking around. There was no clear loss of consciousness, unresponsiveness or tonic clonic activity with these 2 episodes, but it appeared that the patient would sit still with face down for a few seconds without any movement. This was followed by him moving around, but there was no significant agitation noted. He was not as fidgety as before, he did not stand up and start walking with these 2 episodes. He wiped his nose with his left hand and then he sat back and lay in the bed. These 2 events were shorter in duration and not as intense as before. EEG CHANGES: EEG starts with normal background activity and is followed by increased myogenic activity. There is beta activity which is diffuse. This is followed by mixed activity with rhythmic delta 3 Hz high amplitude noted at FP2, F4, C4 more than P4. It builds up and evolves over time for a few seconds. With this event it did appear that it spread to the left frontal or bitemporal regions. This was followed by a mixed frequency including beta, myogenic and theta activity throughout with rhythmic myogenic activity coinciding with his chewing movement and this was followed by diffuse slowing with drowsiness. EK per minute. OVERALL VIDEO EEG RESULTS: THE PATIENT HAD A TOTAL OF 10 ICTAL EVENTS. CLINICALLY AND ELECTROGRAPHICALLY THEY APPEARED TO BE SIMILAR IN NATURE, BUT WITH MEDICATIONS IT APPEARED THEAT THEY WERE SHORTER IN DURATION AND LESS INTENSE. PLEASE SEE THE ICTAL EVENTS DESCRIPTIONS FOR FULL DETAILS. ELECTROGRAPHICALLY IT APPEARED THAT HIS SEIZURES IN THE RIGHT FRONTOCENTRAL REGION AND THEN IT QUICKLY SPREAD TO THE LEFT FRONTAL AND BITEMPORAL REGIONS FOLLOWED BY DIFFUSE SLOWING AND SUPPRESSION. THE ENTIRE VIDEO EEG FINDINGS WERE DISCUSSED WITH THE PATIENT AND THE PATIENT'S MOTHER. EKG remained stable throughout the recording. Final Touch Up Painter: MURALI Parts Salesperson: EEG.YI DUARTE
== END 2017-12-06 14:35 | disposition home or self-care (01) | DRG 101 ==
LOC: IMCU/EMU 07:55 → EDSTATUS 08:00
PROVIDERS: ADMIT Student in an Organized Health Care Education/Training Program; ATTEND Student in an Organized Health Care Education/Training Program
DX: G40.209 Localization-related (focal) (partial) symptomatic epilepsy and epileptic syndromes with complex partial seizures, not intractable, without status epilepticus (principal); I10 Essential (primary) hypertension; R32 Unspecified urinary incontinence; Z87.891 Personal history of nicotine dependence
CPT/HCPCS: 36415; 80053; 80177; 80183; 80339; 85025; 95951; 95957; G0480; J7050

== ENCOUNTER 2019-12-20 19:54 | Observation (INO) | payer MEDICARE, MEDICAID ==
[2019-12-20] MEDS ORDERED: Nitroglycerin 2% Ointment 1 INCH/1 GM Packet ONE (20:21)
--- NOTE | 2019-12-20 20:28 | RAD ---
XR Chest 1 View Portable HISTORY: Left-sided chest pain COMPARISON: 12/11/2016 FINDINGS: The heart size is normal. The lungs are well expanded without focal areas of consolidation, pneumothorax or pleural effusions. IMPRESSION: No radiographic evidence of acute cardiopulmonary process.
[2019-12-20 20:36] LABS: Hemoglobin 13.3 g/dL (14.0-18.0); Mean Corpuscular HGB CONC 35.4 g/dL (32.0-36.0); Mean Corpuscular Hemoglobin 34.7 pg (27.0-31.0); Mean Corpuscular Volume 98.1 fL (78.0-98.0); Mean Platelet Volume 7.5 fL (7.4-10.4); Platelet Count 259 thou/uL (130-400); RBC Distribution Width 11.1 % (11.5-14.5); Red Blood Cell (RBC) Count 3.84 mill/uL (4.70-6.10); White Blood Cell (WBC) Count 5.4 thou/uL (4.8-10.8)
[2019-12-20 20:43] LABS: ALT (SGPT) 43 U/L (8-55); AST (SGOT) 31 U/L (5-34); Alkaline Phosphatase 65 U/L (40-110); Anion Gap 13 mmol/L (10-20); BUN (Urea Nitrogen) 12 mg/dL (8.4-25.7); Bilirubin, Total 0.5 mg/dL (0.2-1.2); CK (CPK) 828 U/L (30-200); Calc. Creatinine Clearance 0 mL/min (70-130); Calcium 8.9 mg/dL (7.8-10.44); Carbon Dioxide 27 mmol/L (22-29); Chloride 90 mmol/L (98-107); Estimated GFR-MDRD 78; Globulin 3.9 g/dL (2.4-3.5); Glucose 98 mg/dL (70-105); Lipase 31 U/L (8-78); Potassium 3.8 mmol/L (3.5-5.1); Protein, Total 7.9 g/dL (6.0-8.3); Sodium 126 mmol/L (136-145)
[2019-12-20 21:00] LABS: Band 1 % (5-11); Eosinophils 3 % (0-10); Lymphocytes 15 % (21-51); MDiff Complete? YES; Monocytes 5 % (0-10); Neutrophil 76 % (42-75); Platelet Morphology Comment Appears Adequate; RBC Morphology Normal
[2019-12-20 23:05] LABS: Troponin I Less than 0.010 ng/mL (< 0.028)
[2019-12-21 02:36] LABS: Troponin I 0.011 ng/mL (< 0.028)
[2019-12-21 08:58] VITALS: BMI 25.7
[2019-12-21] MEDS ORDERED: Acetaminophen 325 MG TAB PO PRN (10:05)
[2019-12-21] MEDS ORDERED: Aspirin 81 mg Enteric Coated Tablet PO SCH (10:15)
[2019-12-21] MEDS ORDERED: levETIRAcetam 500 mg/5 ml Oral Solution PO SCH ×2 (10:15→21:00)
[2019-12-21] MEDS ORDERED: Hydrochlorothiazide 25 MG TAB PO SCH (10:15)
[2019-12-21] MEDS ORDERED: OXcarbazepine 300 MG TAB PO SCH (10:15)
[2019-12-21] MEDS ORDERED: NIFEdipine XL 60 MG TAB PO SCH (10:15)
[2019-12-21] MEDS ORDERED: Lacosamide 50 mg Tablet PO SCH (10:15)
--- NOTE | 2019-12-21 14:50 | NM ---
EXAM: Nuclear medicine cardiac perfusion examination with ejection fraction HISTORY: Chest pain TECHNIQUE: Rest images: 9.2 mCi technetium 99m sestamibi Stress images: 27.6 mCi of technetium 9M sestamibi; Adenosine COMPARISON: None FINDINGS: Tomographic images: No fixed or reversible perfusion defects. Gated images: Normal wall motion and ejection fraction of 58%. EDV: 94 mL LHR: 0.3 TID: 0.9 IMPRESSION: No evidence of ischemia
[2019-12-21] MEDS ORDERED: ADENOSINE 60 MG/20 ML VIAL ONE (15:21)
[2019-12-21 16:40] LABS: Sodium 125 mmol/L (136-145)
[2019-12-21] MEDS ORDERED: cloNIDine 0.1 MG TAB PO PRN (17:48)
[2019-12-21] MEDS ORDERED: NIFEdipine XL 30 MG TAB PO SCH (18:00)
[2019-12-21] MEDS ORDERED: Sodium Chloride 0.9% 1,000 ML IV SCH (18:00)
[2019-12-21] MEDS: Lacosamide 50 mg Tablet PO SCH (20:47)
[2019-12-21] MEDS: OXcarbazepine 300 MG TAB PO SCH (20:48)
[2019-12-21] MEDS ORDERED: clonazePAM 0.5 MG TABLET PO SCH (21:00)
[2019-12-21] MEDS ORDERED: risperiDONE 0.25 MG TAB PO SCH (21:00)
[2019-12-21 23:39] LABS: Potassium, Urine 15.2 mmol/L
[2019-12-22 05:47] LABS: Anion Gap 13 mmol/L (10-20); BUN (Urea Nitrogen) 8 mg/dL (8.4-25.7); Calc. Creatinine Clearance 92 mL/min (70-130); Calcium 9.2 mg/dL (7.8-10.44); Carbon Dioxide 25 mmol/L (22-29); Chloride 91 mmol/L (98-107); Estimated GFR-MDRD Greater than 90; Glucose 91 mg/dL (70-105); Potassium 3.8 mmol/L (3.5-5.1); Sodium 125 mmol/L (136-145)
--- NOTE | 2019-12-22 07:41 | HP ---
CHIEF COMPLAINT: Chest pain. HISTORY OF PRESENT ILLNESS: Mr. Macdonald is a 59-year-old male with past medical history of hypertension, seizure disorder, came because of the burning in the chest. He says pain started in the evening. It is intermittent, associated with some nausea, no vomiting, no shortness of breath, no headache and no diaphoresis. It is mainly located in the left lower chest. EMS was called. EMS gave some nitroglycerin and feels the pain went away. In the ER, the patient was pain free. In view of risk factors, the patient was admitted to rule out myocardial infarction. The patient also had elevated blood pressure of 150/100 in the ER. The patient received nitroglycerin patch. PAST MEDICAL HISTORY: 1. Seizure disorder. 2. Hypertension. 3. Hyperlipidemia. 4. Intellectual disability. PAST SURGICAL HISTORY: Status post right forearm surgery, s/p abdominal laparotomy . CURRENT MEDICATIONS: The patient is on; 1. Nifedipine ER 60 mg daily. 2. Trileptal 600 b.i.d. 3. Risperdal 0.5 at bedtime. 4. Keppra 875 mg b.i.d. 5. Hydrochlorothiazide 25 mg daily. 6. Vimpat 200 mg b.i.d. 7. Clonazepam 0.5 at bedtime. 8. Aspirin 81 mg daily. ALLERGIES: NKDA. FAMILY HISTORY: Nothing contributory. SOCIAL HISTORY: The patient lives with family. No history of smoking. No history of alcohol. REVIEW OF SYSTEMS: CARDIOVASCULAR: Has chest pain. No shortness of breath. RESPIRATORY: No fever or cough. GASTROINTESTINAL: No nausea, vomiting, or abdominal pain. CENTRAL NERVOUS SYSTEM: No headache. No dizziness. PHYSICAL EXAMINATION: GENERAL: The patient is alert, awake, oriented x3. VITAL SIGNS: Temperature 98, pulse 56, respirations 20, blood pressure 170/100. HEENT: Head is normocephalic, atraumatic. Pupils equal and reactive. Nasopharynx is pale and dry. NECK: Supple. No JVD. LUNGS: Bilateral air entry present. No rales, no rhonchi. HEART: S1 and S2, regular. ABDOMEN: Soft. No distention. No tenderness. No abnormal bowel sounds. RECTAL: Deferred. CENTRAL NERVOUS SYSTEM: No focal deficits. LABORATORY DATA: CBC shows WBC of 5, hemoglobin 13, hematocrit 37, platelets 259. Metabolic panel; sodium 126, potassium 3.9, chloride 90, CO2 of 27, BUN 12, creatinine 1.1, glucose 98. Troponin I less than 0.010. EKG shows normal sinus rhythm, no acute ST-T changes seen. Chest x-ray negative. ASSESSMENT: 1. Chest pain, rule out myocardial infarction. 2. Hypertension, uncontrolled. 3. Hyponatremia. 4. Seizure disorder. 5. Intellectual disability. PLAN: 1. Vital signs q.4 hours. 2. Activity as tolerated. 3. Allergies, NKDA. 4. Hep-Lock. 5. Continue home medications. 6. Stress test. 7. Urine lytes. 8. IV fluids normal saline at 100 mL/h. 9. We will increase Procardia. Job ID: [id number] [facility]
[2019-12-22 08:11] VITALS: BP 114/77; TEMP 97.6
[2019-12-22] MEDS ORDERED: Aspirin 81 mg Enteric Coated Tablet PO SCH (09:00)
[2019-12-22] MEDS ORDERED: NIFEdipine XL 60 MG TAB PO SCH (09:00)
[2019-12-22] MEDS ORDERED: levETIRAcetam 500 mg/5 ml Oral Solution PO SCH (09:00)
[2019-12-22] MEDS ORDERED: Hydrochlorothiazide 25 MG TAB PO SCH (09:00)
[2019-12-22] MEDS ORDERED: NIFEdipine XL 90 MG TAB PO SCH (09:00)
[2019-12-22] MEDS: OXcarbazepine 300 MG TAB PO SCH (09:17)
[2019-12-22] MEDS: Lacosamide 50 mg Tablet PO SCH (11:39)
--- NOTE | 2019-12-23 11:46 | DIS ---
DATE OF ADMISSION: 12/20/2019 DATE OF DISCHARGE: 12/22/2019 ADMITTING DIAGNOSES: 1. Chest pain, rule out myocardial infarction. 2. Hypertension, uncontrolled. 3. Hyponatremia. 4. Seizure disorder. 5. Intellectual disability. FINAL DIAGNOSES: 1. Chest pain, no evidence of acute myocardial infarction, negative stress test. 2. Hypertension, uncontrolled, improved. 3. Hyponatremia, improving. 4. Seizure disorder. 5. Hyperlipidemia. 6. Intellectual disability. BRIEF SUMMARY OF HOSPITAL COURSE: Mr. Macdonald is a 59-year-old male, admitted because of the chest pain, to rule out CO. Serial cardiac enzymes were done. They were within normal limits. A stress test was done, which showed no evidence of any ischemia. The patient did not have any more chest pain. He was found to have hyponatremia which possibly due to SIADH. He was placed on fluid restriction because his urine lytes showed his urine sodium of 120, but the patient has been feeling better, so his blood pressure was controlled now, so in view of that, he is being discharged to home. At the time of discharge, he was stable, vital signs stable, lungs clear, heart sounds regular. Abdomen is soft, and nontender, bowel sounds present. DISCHARGE MEDICATIONS: Include: 1. Keppra 750 b.i.d. 2. Trileptal 600 b.i.d. 3. Vimpat 200 mg b.i.d. 4. Aspirin 81 mg daily. 5. Risperdal 0.5 mg at bedtime. 6. Clonazepam 0.5 at bedtime. 7. Nifedipine 60 mg daily. 8. His hydrochlorothiazide will be discontinued and he will be on fluid restriction. DISCHARGE FOLLOWUP: The patient will be followed up in 2 weeks, and they will repeat his sodium level. Job ID: [id number] [facility]
== END 2019-12-22 13:43 | disposition home or self-care (01) ==
LOC: ERS 19:54 → ERHOLD 22:26 → 2SW 12-21 08:06
PROVIDERS: ADMIT Internal Medicine; ATTEND Internal Medicine
DX: R07.9 Chest pain, unspecified (principal); I10 Essential (primary) hypertension; E87.1 Hypo-osmolality and hyponatremia; G40.909 Epilepsy, unspecified, not intractable, without status epilepticus; E78.5 Hyperlipidemia, unspecified; F79 Unspecified intellectual disabilities; Z79.82 Long term (current) use of aspirin; Z79.899 Other long term (current) drug therapy
CPT/HCPCS: 71045; 78452; 80048; 80053; 82436; 82550; 83690; 83935; 84133; 84295; 84300; 84484 ×3; 85025; 93005; 93017; 94760; 96360; 96361 ×2; 99285; G0378 ×4; 36415; J0153

== ENCOUNTER 2022-07-02 14:29 | Outpatient (CLI) | payer OTHER | END 2022-07-02 14:30 | disposition home or self-care (01) | LOC: BICULT 14:29 | PROVIDERS: ATTEND Family Medicine | DX: R59.0 Localized enlarged lymph nodes (principal); L08.9 Local infection of the skin and subcutaneous tissue, unspecified | CPT/HCPCS: 76536 ==

== ENCOUNTER 2022-10-25 14:00 | Inpatient (IN) | payer OTHER, MEDICAID ==
[2022-10-29 08:02] LABS: SARS-CoV-2 NAA Rapid Test Not Detected (NotDetected)
[2022-10-29] MEDS ORDERED: Protamine Sulfate 50 MG/5 ML VIAL ONE (10:59)
[2022-10-29] MEDS ORDERED: Heparin 5,000 UNITS/ML VIAL ONE (10:59)
[2022-10-29] MEDS ORDERED: Bupivacaine HCl 0.5%/Epinephrine 1:200,000/PF 30 ml Vial ONE (11:03)
[2022-10-29] MEDS ORDERED: CEFAZOLIN 2 GM VIAL ONE (11:10)
[2022-10-29] MEDS ORDERED: Sodium Chloride 0.9% 100 ML ONE (11:11)
[2022-10-29] MEDS ORDERED: Fentanyl 250 MCG/5 ML VIAL ONE (11:15)
[2022-10-29] MEDS ORDERED: Rocuronium Bromide 10 MG/ML (10ML VIAL) ONE (11:26)
[2022-10-29] MEDS ORDERED: Lidocaine 1% PF 5 ML VIAL ONE (11:26)
[2022-10-29] MEDS ORDERED: Dexamethasone 20 MG/5 ML VIAL ONE (11:26)
[2022-10-29] MEDS ORDERED: Ondansetron PF 4 MG/2 ML Vial ONE (11:26)
[2022-10-29] MEDS ORDERED: PHENYLEPHRINE-NS 100 MCG/ML 10 ML SYRINGE ONE (11:26)
[2022-10-29] MEDS ORDERED: PROPOFOL 200 MG/20 ML VIAL ONE (11:26)
[2022-10-29] MEDS ORDERED: SUGAMMADEX SODIUM 200 MG/2 ML VIAL ONE (13:03)
[2022-10-29] MEDS ORDERED: Fentanyl 100 MCG/2 ML VIAL SLOW IVP PRN (13:12)
[2022-10-29] MEDS ORDERED: niCARdipine 25 MG in Sodium Chloride 0.9% 250 ML 250 ML IVPB PRN (13:12)
[2022-10-29] MEDS ORDERED: Phenylephrine 40 MG in Sodium Chloride 0.9% 250 ML 250 ML IVPB PRN (13:12)
[2022-10-29] MEDS ORDERED: Ondansetron PF 4 MG/2 ML Vial IVP PRN (13:12)
[2022-10-29] MEDS ORDERED: traMADol HCl 50 MG TAB PO PRN (13:12)
[2022-10-29] MEDS ORDERED: Acetaminophen 325 MG TAB ONE (14:04)
[2022-10-29] MEDS: Sodium Chloride 0.9% 1,000 ML IV SCH (15:06)
[2022-10-29 15:46] VITALS: BMI 23.3
[2022-10-29] MEDS: CEFAZOLIN 2 GM in Sodium Chloride 0.9% 100 ML IVPB SCH (18:37)
[2022-10-29] MEDS ORDERED: NIFEdipine XL 60 MG TAB PO SCH (18:45)
[2022-10-29] MEDS: Acetaminophen 325 MG TAB PO PRN ×2 (19:32→23:25)
[2022-10-29] MEDS: Lacosamide 50 mg Tablet PO SCH (20:43)
[2022-10-29] MEDS ORDERED: clonazePAM 0.5 MG TAB PO SCH (21:00)
[2022-10-29] MEDS ORDERED: Atorvastatin Calcium 10 MG TAB PO SCH (21:00)
[2022-10-29] MEDS ORDERED: risperiDONE 0.25 MG TAB PO SCH (21:00)
[2022-10-29] MEDS: levETIRAcetam 500 mg/5 ml Oral Solution PO SCH (21:14)
[2022-10-30] MEDS: CEFAZOLIN 2 GM in Sodium Chloride 0.9% 100 ML IVPB SCH (02:36)
[2022-10-30] MEDS: Acetaminophen 325 MG TAB PO PRN (04:29)
[2022-10-30 07:31] VITALS: TEMP 97.9
[2022-10-30] MEDS ORDERED: Aspirin Chewable 81 MG TAB PO SCH (09:00)
[2022-10-30] MEDS ORDERED: Hydrochlorothiazide 25 MG TAB PO SCH (09:00)
[2022-10-30] MEDS ORDERED: NIFEdipine XL 60 MG TAB PO SCH (09:00)
[2022-10-30] MEDS ORDERED: Tamsulosin HCl 0.4 MG CAP PO SCH (09:00)
[2022-10-30] MEDS: Sodium Chloride 0.9% 1,000 ML IV SCH (09:32)
[2022-10-30] MEDS: Lacosamide 50 mg Tablet PO SCH (09:32)
[2022-10-30] MEDS: levETIRAcetam 500 mg/5 ml Oral Solution PO SCH (09:32)
[2022-10-30 10:20] VITALS: BP 122/88
== END 2022-10-30 10:23 | disposition home or self-care (01) | DRG 254 ==
LOC: SURG A 10-29 06:49 → CCU 10-29 15:03
PROVIDERS: ADMIT Thoracic Surgery (Cardiothoracic Vascular Surgery); ATTEND Thoracic Surgery (Cardiothoracic Vascular Surgery)
PROC: 03R Upper Arteries, Replacement (ICD-10-PCS; principal; 2022-10-29)
PROC: 06BQ0ZZ Excision of Left Saphenous Vein, Open Approach (ICD-10-PCS; 2022-10-29)
DX: I72.0 Aneurysm of carotid artery (principal); I10 Essential (primary) hypertension; E78.5 Hyperlipidemia, unspecified; Z20.822 Contact with and (suspected) exposure to COVID-19; Z79.899 Other long term (current) drug therapy; Z79.82 Long term (current) use of aspirin; Z87.891 Personal history of nicotine dependence
CPT/HCPCS: 80048; 85027; 87070; 87205; 93005; 93010; 94640; J1100; J1642; J1644; J2405; J2704; J2720; J3010; J3490; J7050; J7620; U0002